=== PATIENT | male | born 1995 | race Caucasian/White ===

== ENCOUNTER 2018-04-25 14:45 | Emergency (ER) | payer OTHER ==
[~2018-04-25] VITALS: Ht 188 cm; Wt 86.4 kg
[2018-04-25] MEDS ORDERED: LIDOCAINE 1% MDV 20ML VIAL IM ONE (16:00)
[2018-04-25 16:33] VITALS: BP 126/79
[2018-04-25] MEDS ORDERED: NEOSPORIN OINT 0.9 GM PKT (FLOOR STOCK) As Ordered ONE (16:33)
[2018-04-25] MEDS ORDERED: NEOSPORIN OINT 0.9 GM PKT (FLOOR STOCK) TOP ONE (16:45)
== END 2018-04-25 16:45 | disposition home or self-care (01) ==
LOC: M ED 14:45
DX: S61.412A Laceration without foreign body of left hand, initial encounter (principal); W26.0XXA Contact with knife, initial encounter; Y92.009 Unspecified place in unspecified non-institutional (private) residence as the place of occurrence of the external cause